=== PATIENT | male | born 1975 | race Caucasian/White ===

== ENCOUNTER 2016-06-24 08:57 | Inpatient (IN) | payer OTHER ==
[2016-06-24 10:20] VITALS: BMI 33.5
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
[2016-06-24] MEDS ORDERED: MAGNESIUM CITRATE 300 ML BOTTLE PO PRN (12:51)
[2016-06-24] MEDS ORDERED: P-EPHED 60MG/TRIPROLIDI 2.5MG TABLET PO PRN (12:51)
[2016-06-24] MEDS ORDERED: MENTHOL/PHENOL 1 EACH UD MM PRN (12:51)
[2016-06-24] MEDS ORDERED: IBUPROFEN 400 MG TABLET (FP) PO PRN (12:51)
[2016-06-24] MEDS ORDERED: ACETAMINOPHEN 325 MG TABLET (FP) PO PRN (12:51)
[2016-06-24] MEDS ORDERED: MAG HYDROX/AL HYDROX/SIMETH 30 ML UNIT-DOSE CUP PO PRN (12:51)
[2016-06-24] MEDS ORDERED: chlordiazePOXIDE HCL 25 MG CAPSULE PO PRN (12:51)
[2016-06-24] MEDS ORDERED: MAGNESIUM HYDROX 2400MG/30ML ORAL SUSPENSION 30 ML CUP PO PRN (12:51)
[2016-06-24] MEDS ORDERED: LOPERAMIDE HCL 2 MG CAPSULE PO PRN (12:51)
[2016-06-24] MEDS ORDERED: guaiFENesin/D-METHORPHAN HB 10 ML UNIT-DOSE CUPS PO PRN (12:51)
[2016-06-24] MEDS ORDERED: chlordiazePOXIDE HCL 25 MG CAPSULE PO ONE (12:56)
[2016-06-24] MEDS: NICOTINE 14 MG/24 HOURS TOPICAL PATCH TD SCH (14:11)
[2016-06-24 15:09] LABS: HIV 1 & 2 AB NEGATIVE; HIV 1 AGp24 NEGATIVE
[2016-06-24] MEDS: chlordiazePOXIDE HCL 25 MG CAPSULE PO SCH ×2 (17:16→22:29)
[2016-06-24] MEDS: THIAMINE HCL 100 MG TABLET (FP) PO SCH (22:29)
[2016-06-24 22:35] LABS: URINE APPEARANCE CLEAR; URINE BILIRUBIN NEGATIVE (NEGATIVE); URINE BLOOD NEGATIVE (NEGATIVE); URINE COLOR COLORLESS; URINE GLUCOSE (UA) NEGATIVE (NEGATIVE); URINE KETONE NEGATIVE (NEGATIVE); URINE LEUK ESTERASE NEGATIVE (NEGATIVE); URINE NITRITE NEGATIVE (NEGATIVE); URINE PROTEIN NEGATIVE (NEGATIVE); URINE UROBILINOGEN NEGATIVE E.U./dl (0.2-1.0)
[2016-06-25] MEDS: chlordiazePOXIDE HCL 25 MG CAPSULE PO SCH ×4 (05:46→22:53)
--- NOTE | 2016-06-25 10:12 | EKG ---
Test Reason : Blood Pressure : / mmHG Vent. Rate : 080 BPM Atrial Rate : 080 BPM P-R Int : 162 ms QRS Dur : 098 ms QT Int : 356 ms P-R-T Axes : 060 -05 044 degrees QTc Int : 410 ms NORMAL SINUS RHYTHM NO PREVIOUS ECGS AVAILABLE Confirmed by ANA MARÍA ALVARADO MD ([id number]) on 06/25/2016 10:11:26 AM Referred By: Confirmed By:ANA MARÍA ALVARADO MD
[2016-06-25 10:17] LABS: MCH 32.4 pg (25.7-33.7); MCHC 33.7 g/dl (32.0-35.9); MEAN CELL VOLUME 96.1 fl (80-96); MEAN PLT VOLUME 10.4 fl (7.5-11.1); PLATELET COUNT 207 K/MM3 (134-434); RDW 13.3 % (11.9-15.9); WHITE BLOOD COUNT 5.1 K/mm3 (4.0-10.0)
[2016-06-25] MEDS: PRENATAL VITAMINS W/ FOLIC ACID TABLET (FP) PO SCH (10:26)
[2016-06-25] MEDS: NICOTINE 14 MG/24 HOURS TOPICAL PATCH TD SCH (10:26)
[2016-06-25] MEDS: NICOTINE POLACRILEX 2 MG GUM BUC PRN (10:26)
[2016-06-25 11:08] LABS: ALBUMIN 4.5 g/dl (3.4-5.0); ALK PHOS 69 U/L (45-117); ANION GAP 9 (8-16); BILIRUBIN,TOTAL 0.5 mg/dL (0.2-1.0); CALCIUM 9.4 mg/dL (8.5-10.1); CO2 27 mmol/L (21-32); COCKROFT - GAULT 160.48; CREATININE 0.9 mg/dL (0.7-1.3); GLUCOSE,RANDOM 85 mg/dL (74-106); SGOT/AST 72 U/L (15-37); SGPT/ALT 170 U/L (12-78); TOT PROT 8.3 g/dl (6.4-8.2)
--- NOTE | 2016-06-25 11:20 | CONSULT ---
[facility] Psychiatric Consult - Data Date of interview: 06/25/16 Admission source: [facility] Identifying data: THis is 41 yo single father of 9 years old son, resides with mother,supported by PA admitted for alcohol dependendendence. Substance Abuse History: Reports drinking since 17 years old,progressed to daily drinking in his late .Vodka 1 pint, a few beers daily. marijuana since 17 years old. Medical History: unremarkable Psychiatric History: Reports depressed mood started back about 7 months ago.patient started to see a therapist.He was admitted to [facility] 3 months ago due to severe depression.He was dx with MDD,then Bipolar disorder.He was on Abilify 15 mg po daily,Trazodone 50 mg po hs.No regular psychiatric care at present.Patient stopped taking his psychotropic meds when he relapsed and is not willing to restart it at this time ,stating that he is sedated enouph with Librium. Physical/Sexual Abuse/Trauma History: denies Mental Status Exam - Mental Status Exam Alert and Oriented to: Time, Place, Person Cognitive Function: Grossly Intact Patient Appearance: Well Groomed Mood: Sad Affect: Mood Congruent Patient Behavior: Appropriate, Cooperative Speech Pattern: Clear Voice Loudness: Normal Thought Process: Goal Oriented Hallucinations: Denies Suicidal Ideation: Denies Homicidal Ideation: Denies Insight/Judgement: Fair Sleep: Fair Appetite: Good Muscle strength/Tone: Normal Gait/Station: Normal Psychiatric Findings - Problem List ([place] 1, 2,3) (1) Alcohol dependence with uncomplicated withdrawal Current Visit: Yes Status: Chronic (2) Cannabis dependence, uncomplicated Current Visit: Yes Status: Chronic (3) MDD (major depressive disorder) Current Visit: Yes Status: Chronic - Initial Treatment Plan Initial Treatment Plan: Will monitor progress.Consider antidepressants while in rehab treatment after finishing detox treatment.
--- NOTE | 2016-06-25 14:02 | PN ---
S CIWA - CIWA Score Nausea/Vomitin Muscle Tremors: 3 Anxiety: 3 Agitation: 2 Paroxysmal Sweats: 2 Orientation: 0-Oriented Tacttile Disturbances: 1-Very Mild Itch/Numbness Auditory Disturbances: 0-None Visual Disturbances: 0-None Headache: 2-Mild CIWA-Ar Total Score: 15 S Progress Note (SOAP) Subjective: Anxiety, irritability, muscle aches and tremors Objective: 06/25/16 14:00 Vital Signs - 8 hr 06/25/16 06/25/16 06:47 09:48 Temperature 96 F L 95.5 F L Pulse Rate 60 83 Respiratory 18 18 Rate Blood Pressure 123/88 115/79 Laboratory Last Values WBC 5.1 K/mm3 (4.0-10.0) 06/25/16 06:16 RBC 5.42 M/mm3 (4.00-5.60) 06/25/16 06:16 Hgb 17.6 GM/dL (11.7-16.9) H 06/25/16 06:16 Hct 52.1 % (35.4-49) H 06/25/16 06:16 MCV 96.1 fl (80-96) H 06/25/16 06:16 MCHC 33.7 g/dl (32.0-35.9) 06/25/16 06:16 RDW 13.3 % (11.9-15.9) 06/25/16 06:16 Plt Count 207 K/MM3 (134-434) 06/25/16 06:16 MPV 10.4 fl (7.5-11.1) 06/25/16 06:16 Sodium 141 mmol/L (136-145) 06/25/16 06:16 Potassium 4.5 mmol/L (3.5-5.1) 06/25/16 06:16 Chloride 105 mmol/L (98-107) 06/25/16 06:16 Carbon Dioxide 27 mmol/L (21-32) 06/25/16 06:16 Anion Gap 9 (8-16) 06/25/16 06:16 BUN 9 mg/dL (7-18) 06/25/16 06:16 Creatinine 0.9 mg/dL (0.7-1.3) 06/25/16 06:16 Creat Clearance w eGFR > 60 (>60) 06/25/16 06:16 Random Glucose 85 mg/dL (74-106) 06/25/16 06:16 Calcium 9.4 mg/dL (8.5-10.1) 06/25/16 06:16 Total Bilirubin 0.5 mg/dL (0.2-1.0) 06/25/16 06:16 AST 72 U/L (15-37) H 06/25/16 06:16 ALT 170 U/L (12-78) H 06/25/16 06:16 Alkaline Phosphatase 69 U/L (45-117) 06/25/16 06:16 Total Protein 8.3 g/dl (6.4-8.2) H 06/25/16 06:16 Albumin 4.5 g/dl (3.4-5.0) 06/25/16 06:16 Urine Color Colorless 06/24/16 13:00 Urine Appearance Clear 06/24/16 13:00 Urine pH 6.0 (5.0-8.0) 06/24/16 13:00 Ur Specific [place] 1.003 (1.001-1.035) 06/24/16 13:00 Urine Protein Negative (NEGATIVE) 06/24/16 13:00 Urine Glucose (UA) Negative (NEGATIVE) 06/24/16 13:00 Urine Ketones Negative (NEGATIVE) 06/24/16 13:00 Urine Blood Negative (NEGATIVE) 06/24/16 13:00 Urine Nitrite Negative (NEGATIVE) 06/24/16 13:00 Urine Bilirubin Negative (NEGATIVE) 06/24/16 13:00 Urine Urobilinogen Negative E.U./dl (0.2-1.0) 06/24/16 13:00 Ur Leukocyte Esterase Negative (NEGATIVE) 06/24/16 13:00 RPR Titer Nonreactive (NONREACTIVE) 06/25/16 06:16 HIV 1&2 Antibody Screen Negative 06/24/16 12:10 HIV P24 Antigen Negative 06/24/16 12:10 labs noted Assessment: 06/25/16 14:01 withdrawal sx Plan: continue detox
[2016-06-25] MEDS: hydrOXYzine PAMOATE 25 MG CAPSULE (FP) PO PRN (15:45)
[2016-06-25 19:16] LABS: URINE APPEARANCE CLEAR; URINE BILIRUBIN NEGATIVE (NEGATIVE); URINE BLOOD NEGATIVE (NEGATIVE); URINE COLOR YELLOW; URINE GLUCOSE (UA) NEGATIVE (NEGATIVE); URINE KETONE NEGATIVE (NEGATIVE); URINE LEUK ESTERASE NEGATIVE (NEGATIVE); URINE NITRITE NEGATIVE (NEGATIVE); URINE PROTEIN NEGATIVE (NEGATIVE); URINE UROBILINOGEN NEGATIVE E.U./dl (0.2-1.0)
[2016-06-25] MEDS: THIAMINE HCL 100 MG TABLET (FP) PO SCH (22:53)
[2016-06-25] MEDS: diphenhydrAMINE HCL 50 MG CAPSULE PO PRN (22:54)
[2016-06-26] MEDS: chlordiazePOXIDE HCL 25 MG CAPSULE PO SCH ×2 (05:48→10:54)
[2016-06-26] MEDS: PRENATAL VITAMINS W/ FOLIC ACID TABLET (FP) PO SCH (10:53)
[2016-06-26] MEDS: NICOTINE 14 MG/24 HOURS TOPICAL PATCH TD SCH (10:54)
[2016-06-26] MEDS: NICOTINE POLACRILEX 2 MG GUM BUC PRN (10:55)
[2016-06-26] MEDS: hydrOXYzine PAMOATE 25 MG CAPSULE (FP) PO PRN (15:39)
--- NOTE | 2016-06-26 16:15 | PN ---
S CIWA - CIWA Score Nausea/Vomitin-Mild Nausea/No Vomiting Muscle Tremors: 3 Anxiety: 3 Agitation: 3 Paroxysmal Sweats: No Perspiration Orientation: 0-Oriented Tacttile Disturbances: 0-None Auditory Disturbances: 0-None Visual Disturbances: 0-None Headache: 2-Mild CIWA-Ar Total Score: 12 S Progress Note (SOAP) Subjective: Anxious, sweating, interrupted sleep Objective: 06/26/16 16:13 Last Vital Signs Temp Pulse Resp BP Pulse Ox 95.0 F L 87 18 112/85 06/26/16 13:35 06/26/16 13:35 06/26/16 13:35 06/26/16 13:35 Laboratory Tests 06/24/16 06/24/16 06/25/16 12:10 13:00 06:16 WBC 5.1 RBC 5.42 Hgb 17.6 H Hct 52.1 H MCV 96.1 H MCHC 33.7 RDW 13.3 Plt Count 207 MPV 10.4 Sodium Potassium Chloride Carbon Dioxide Anion Gap BUN Creatinine Creat Clearance w eGFR Random Glucose Calcium Total Bilirubin AST ALT Alkaline Phosphatase Total Protein Albumin Urine Color Colorless Urine Appearance Clear Urine pH 6.0 Ur Specific [place] 1.003 Urine Protein Negative Urine Glucose (UA) Negative Urine Ketones Negative Urine Blood Negative Urine Nitrite Negative Urine Bilirubin Negative Urine Urobilinogen Negative Ur Leukocyte Esterase Negative RPR Titer HIV 1&2 Antibody Screen Negative HIV P24 Antigen Negative 06/25/16 06/25/16 06/25/16 06:16 06:16 11:05 WBC RBC Hgb Hct MCV MCHC RDW Plt Count MPV Sodium 141 Potassium 4.5 Chloride 105 Carbon Dioxide 27 Anion Gap 9 BUN 9 Creatinine 0.9 Creat Clearance w eGFR > 60 Random Glucose 85 Calcium 9.4 Total Bilirubin 0.5 AST 72 H ALT 170 H Alkaline Phosphatase 69 Total Protein 8.3 H Albumin 4.5 Urine Color Yellow Urine Appearance Clear Urine pH 5.0 Ur Specific [place] 1.020 Urine Protein Negative Urine Glucose (UA) Negative Urine Ketones Negative Urine Blood Negative Urine Nitrite Negative Urine Bilirubin Negative Urine Urobilinogen Negative Ur Leukocyte Esterase Negative RPR Titer Nonreactive HIV 1&2 Antibody Screen HIV P24 Antigen Labs noted Assessment: 06/26/16 16:14 Withdrawal symptoms Plan: Continue detox
[2016-06-26] MEDS: chlordiazePOXIDE 5 MG CAPSULE PO SCH ×2 (17:52→22:41)
[2016-06-26] MEDS: THIAMINE HCL 100 MG TABLET (FP) PO SCH (22:41)
[2016-06-26] MEDS: diphenhydrAMINE HCL 50 MG CAPSULE PO PRN (22:41)
[2016-06-27] MEDS: chlordiazePOXIDE 5 MG CAPSULE PO SCH ×2 (05:11→10:35)
[2016-06-27] MEDS: NICOTINE 14 MG/24 HOURS TOPICAL PATCH TD SCH (10:35)
[2016-06-27] MEDS: PRENATAL VITAMINS W/ FOLIC ACID TABLET (FP) PO SCH (10:35)
--- NOTE | 2016-06-27 15:42 | PN ---
BHS Progress Note (SOAP) Subjective: Sweating,interrupted sleep,restless Objective: 06/27/16 15:40 Vital Signs - 8 hr 06/27/16 06/27/16 09:51 14:10 Temperature 95.7 F L 96.1 F L Pulse Rate 79 88 Respiratory 20 20 Rate Blood Pressure 139/93 124/84 Laboratory Tests 06/24/16 06/24/16 06/25/16 12:10 13:00 06:16 WBC 5.1 RBC 5.42 Hgb 17.6 H Hct 52.1 H MCV 96.1 H MCHC 33.7 RDW 13.3 Plt Count 207 MPV 10.4 Sodium Potassium Chloride Carbon Dioxide Anion Gap BUN Creatinine Creat Clearance w eGFR Random Glucose Calcium Total Bilirubin AST ALT Alkaline Phosphatase Total Protein Albumin Urine Color Colorless Urine Appearance Clear Urine pH 6.0 Ur Specific [place] 1.003 Urine Protein Negative Urine Glucose (UA) Negative Urine Ketones Negative Urine Blood Negative Urine Nitrite Negative Urine Bilirubin Negative Urine Urobilinogen Negative Ur Leukocyte Esterase Negative RPR Titer HIV 1&2 Antibody Screen Negative HIV P24 Antigen Negative 06/25/16 06/25/16 06/25/16 06:16 06:16 11:05 WBC RBC Hgb Hct MCV MCHC RDW Plt Count MPV Sodium 141 Potassium 4.5 Chloride 105 Carbon Dioxide 27 Anion Gap 9 BUN 9 Creatinine 0.9 Creat Clearance w eGFR > 60 Random Glucose 85 Calcium 9.4 Total Bilirubin 0.5 AST 72 H ALT 170 H Alkaline Phosphatase 69 Total Protein 8.3 H Albumin 4.5 Urine Color Yellow Urine Appearance Clear Urine pH 5.0 Ur Specific [place] 1.020 Urine Protein Negative Urine Glucose (UA) Negative Urine Ketones Negative Urine Blood Negative Urine Nitrite Negative Urine Bilirubin Negative Urine Urobilinogen Negative Ur Leukocyte Esterase Negative RPR Titer Nonreactive HIV 1&2 Antibody Screen HIV P24 Antigen labs noted Assessment: 06/27/16 15:41 Withdrawal sx. Plan: Continue detox
[2016-06-27] MEDS: chlordiazePOXIDE HCL 10 MG CAPSULE PO SCH ×2 (17:25→22:26)
[2016-06-27] MEDS: THIAMINE HCL 100 MG TABLET (FP) PO SCH (22:26)
[2016-06-27] MEDS: diphenhydrAMINE HCL 50 MG CAPSULE PO PRN (22:27)
[2016-06-27] MEDS: NICOTINE POLACRILEX 2 MG GUM BUC PRN (22:28)
[2016-06-28] MEDS: chlordiazePOXIDE HCL 10 MG CAPSULE PO SCH (05:25)
[2016-06-28 09:34] VITALS: BP 135/93; PULSE 89; TEMP 96.1
--- NOTE | 2016-06-28 10:34 | DS ---
[facility] Detox Discharge Summary Admission Date: 06/24/16 Discharge Date: 06/28/16 - History Present History: Alcohol Dependence, Cannabis Dependence Additional Comments: DETOX COMPLETED. ALERT O X 3. NAD. Pertinent Past History: HYPERCHOLESTEROLEMIA HX-NO MEDS DEPRESSION - Physical Exam Results Vital Signs: Vital Signs Temperature 96.1 F L 06/28/16 09:34 Pulse Rate 89 06/28/16 09:34 Respiratory Rate 18 06/28/16 09:34 Blood Pressure 135/93 06/28/16 09:34 O2 Sat by Pulse Oximetry (%) Pertinent Admission Physical Exam Findings: WITHDRAWAL SX Laboratory Last Values WBC 5.1 K/mm3 (4.0-10.0) 06/25/16 06:16 RBC 5.42 M/mm3 (4.00-5.60) 06/25/16 06:16 Hgb 17.6 GM/dL (11.7-16.9) H 06/25/16 06:16 Hct 52.1 % (35.4-49) H 06/25/16 06:16 MCV 96.1 fl (80-96) H 06/25/16 06:16 MCHC 33.7 g/dl (32.0-35.9) 06/25/16 06:16 RDW 13.3 % (11.9-15.9) 06/25/16 06:16 Plt Count 207 K/MM3 (134-434) 06/25/16 06:16 MPV 10.4 fl (7.5-11.1) 06/25/16 06:16 Sodium 141 mmol/L (136-145) 06/25/16 06:16 Potassium 4.5 mmol/L (3.5-5.1) 06/25/16 06:16 Chloride 105 mmol/L (98-107) 06/25/16 06:16 Carbon Dioxide 27 mmol/L (21-32) 06/25/16 06:16 Anion Gap 9 (8-16) 06/25/16 06:16 BUN 9 mg/dL (7-18) 06/25/16 06:16 Creatinine 0.9 mg/dL (0.7-1.3) 06/25/16 06:16 Creat Clearance w eGFR > 60 (>60) 06/25/16 06:16 Random Glucose 85 mg/dL (74-106) 06/25/16 06:16 Calcium 9.4 mg/dL (8.5-10.1) 06/25/16 06:16 Total Bilirubin 0.5 mg/dL (0.2-1.0) 06/25/16 06:16 AST 72 U/L (15-37) H 06/25/16 06:16 ALT 170 U/L (12-78) H 06/25/16 06:16 Alkaline Phosphatase 69 U/L (45-117) 06/25/16 06:16 Total Protein 8.3 g/dl (6.4-8.2) H 06/25/16 06:16 Albumin 4.5 g/dl (3.4-5.0) 06/25/16 06:16 Urine Color Yellow 06/25/16 11:05 Urine Appearance Clear 06/25/16 11:05 Urine pH 5.0 (5.0-8.0) 06/25/16 11:05 Ur Specific [place] 1.020 (1.001-1.035) 06/25/16 11:05 Urine Protein Negative (NEGATIVE) 06/25/16 11:05 Urine Glucose (UA) Negative (NEGATIVE) 06/25/16 11:05 Urine Ketones Negative (NEGATIVE) 06/25/16 11:05 Urine Blood Negative (NEGATIVE) 06/25/16 11:05 Urine Nitrite Negative (NEGATIVE) 06/25/16 11:05 Urine Bilirubin Negative (NEGATIVE) 06/25/16 11:05 Urine Urobilinogen Negative E.U./dl (0.2-1.0) 06/25/16 11:05 Ur Leukocyte Esterase Negative (NEGATIVE) 06/25/16 11:05 RPR Titer Nonreactive (NONREACTIVE) 06/25/16 06:16 HIV 1&2 Antibody Screen Negative 06/24/16 12:10 HIV P24 Antigen Negative 06/24/16 12:10 - Treatment Hospital Course: Detox Protocol Followed, Detoxed Safely, Responded well, Discharged Condition Good, Rehab Referral Accepted Patient has Accepted a Rehab Referral to: [facility] - Medication Discharge Medications: Ambulatory Orders Aripiprazole [Abilify -] 15 mg PO DAILY 06/24/16 Trazodone HCl [Desyrel -] 50 mg PO HS 06/24/16 - Diagnosis (1) Alcohol dependence with uncomplicated withdrawal Current Visit: Yes Status: Acute (2) Cannabis dependence, uncomplicated Current Visit: Yes Status: Acute (3) History of depression Current Visit: Yes Status: Chronic (4) MDD (major depressive disorder) Current Visit: Yes Status: Chronic - AMA Did Patient Leave Against Medical Advice: No
== END 2016-06-28 10:20 | disposition home or self-care (01) | DRG 775 ==
LOC: YASAS 08:57 → Y3N 12:43
PROVIDERS: ADMIT Internal Medicine; ATTEND Internal Medicine
PROC: HZ2ZZZZ Detoxification Services for Substance Abuse Treatment (ICD-10-PCS; principal; 2016-06-28)
DX: F10.230 Alcohol dependence with withdrawal, uncomplicated (principal); F12.20 Cannabis dependence, uncomplicated; F33.9 Major depressive disorder, recurrent, unspecified
CPT/HCPCS: 36415; 80053; 81003; 85027; 86593; 87389; 93005; 93010

== ENCOUNTER 2018-12-07 12:56 | Inpatient (IN) | payer OTHER ==
[2018-12-07 14:21] VITALS: BMI 26.6
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
[2018-12-07] MEDS ORDERED: BISMUTH SUBSALICYLATE 524 MG/30 ML UD PO PRN (15:16)
[2018-12-07] MEDS ORDERED: MELATONIN 5 MG TABLETS PO PRN (15:16)
[2018-12-07] MEDS ORDERED: MAG HYDROX/AL HYDROX/SIMETH 30 ML UNIT-DOSE CUP PO PRN (15:16)
[2018-12-07] MEDS ORDERED: ACETAMINOPHEN 325 MG TABLET (FP) PO PRN ×2 (15:16)
[2018-12-07] MEDS ORDERED: IBUPROFEN 400 MG TABLET (FP) PO PRN (15:16)
[2018-12-07] MEDS ORDERED: MAGNESIUM HYDROX 2400MG/30ML ORAL SUSPENSION 30 ML CUP PO PRN (15:16)
[2018-12-07] MEDS ORDERED: MENTHOL/PHENOL 1 EACH UD MM PRN (15:16)
[2018-12-07] MEDS ORDERED: chlordiazePOXIDE HCL 25 MG CAPSULE PO PRN (15:16)
[2018-12-07] MEDS ORDERED: MAGNESIUM CITRATE 300 ML BOTTLE PO PRN (15:16)
[2018-12-07] MEDS: chlordiazePOXIDE HCL 25 MG CAPSULE PO SCH ×2 (16:43→22:01)
[2018-12-07] MEDS: hydrOXYzine PAMOATE 25 MG CAPSULE (FP) PO PRN (19:59)
[2018-12-07] MEDS: METHOCARBAMOL 500 MG TABLET PO PRN (19:59)
[2018-12-07] MEDS ORDERED: THIAMINE HCL 100 MG TABLET (FP) PO SCH (22:00)
[2018-12-08] MEDS: chlordiazePOXIDE HCL 25 MG CAPSULE PO SCH ×2 (06:18→10:18)
[2018-12-08] MEDS ORDERED: PRENATAL VITAMINS W/ FOLIC ACID TABLET (FP) PO SCH (10:00)
[2018-12-08] MEDS: hydrOXYzine PAMOATE 25 MG CAPSULE (FP) PO PRN (10:20)
[2018-12-08 11:22] LABS: HEMATOCRIT 44.9 % (35.4-49); HEMOGLOBIN 15.3 GM/dL (11.7-16.9); MCH 34.3 pg (25.7-33.7); MCHC 34.1 g/dl (32.0-35.9); MEAN CELL VOLUME 100.5 fl (80-96); MEAN PLT VOLUME 9.7 fl (7.5-11.1); PLATELET COUNT 230 K/MM3 (134-434); RBC 4.47 M/mm3 (4.00-5.60); RDW 13.2 % (11.9-15.9); WHITE BLOOD COUNT 5.8 K/mm3 (4.0-10.0)
[2018-12-08 11:26] LABS: ALBUMIN 4.1 g/dl (3.4-5.0); BILIRUBIN,TOTAL 0.8 mg/dL (0.2-1); BLOOD UREA NITROGEN 9.8 mg/dL (7-18); CALCIUM 9.4 mg/dL (8.5-10.1); CREATININE 0.9 mg/dL (0.55-1.3); POTASSIUM 4.5 mmol/L (3.5-5.1); TOT PROT 7.6 g/dl (6.4-8.2)
[2018-12-08 12:18] VITALS: BP 119/86; PULSE 71; TEMP 99.2
[2018-12-08] MEDS: METHOCARBAMOL 500 MG TABLET PO PRN (13:15)
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
[2018-12-09] MEDS ORDERED: chlordiazePOXIDE HCL 25 MG CAPSULE PO SCH (05:00)
[2018-12-10] MEDS ORDERED: chlordiazePOXIDE HCL 10 MG CAPSULE PO PRN
[2018-12-10] MEDS ORDERED: chlordiazePOXIDE HCL 10 MG CAPSULE PO SCH (05:00)
[2018-12-11] MEDS ORDERED: chlordiazePOXIDE HCL 10 MG CAPSULE PO SCH (05:00)
[2018-12-12] MEDS ORDERED: chlordiazePOXIDE HCL 10 MG CAPSULE PO ONE (05:00)
== END 2018-12-08 14:20 | disposition left against medical advice (07) | DRG 770 ==
LOC: YASAS 12:56 → Y3N 15:38
PROVIDERS: ADMIT Allergy & Immunology; ATTEND Allergy & Immunology
PROC: HZ2ZZZZ Detoxification Services for Substance Abuse Treatment (ICD-10-PCS; principal; 2018-12-07)
DX: F10.230 Alcohol dependence with withdrawal, uncomplicated (principal); F10.220 Alcohol dependence with intoxication, uncomplicated; F19.20 Other psychoactive substance dependence, uncomplicated; F17.210 Nicotine dependence, cigarettes, uncomplicated; F32.9 Major depressive disorder, single episode, unspecified; E78.00 Pure hypercholesterolemia, unspecified; Z87.828 Personal history of other (healed) physical injury and trauma; Z91.5 Personal history of self-harm
CPT/HCPCS: 36415; 80053; 85027; 86593; 87389

== ENCOUNTER 2020-11-09 16:12 | Inpatient (IN) | payer OTHER ==
[2020-11-09 17:06] VITALS: BMI 26.6
[2020-11-09] MEDS ORDERED: MAG HYDROX/AL HYDROX/SIMETH 30 ML UNIT-DOSE CUP PO PRN (17:57)
[2020-11-09] MEDS ORDERED: IBUPROFEN 400 MG TABLET (FP) PO PRN (17:57)
[2020-11-09] MEDS ORDERED: MAGNESIUM CITRATE 300 ML BOTTLE PO PRN (17:57)
[2020-11-09] MEDS ORDERED: hydrOXYzine PAMOATE 25 MG CAPSULE (FP) PO PRN (17:57)
[2020-11-09] MEDS ORDERED: MAGNESIUM HYDROX 2400MG/30ML ORAL SUSPENSION 30 ML CUP PO PRN (17:57)
[2020-11-09] MEDS ORDERED: NICOTINE POLACRILEX 2 MG GUM BUC PRN (17:57)
[2020-11-09] MEDS ORDERED: METHOCARBAMOL 500 MG TABLET PO PRN (17:57)
[2020-11-09] MEDS ORDERED: BISMUTH SUBSALICYLATE 524 MG/30 ML PO PRN (17:57)
[2020-11-09] MEDS ORDERED: MENTHOL/PHENOL 1 EACH UD MM PRN (17:57)
[2020-11-09] MEDS ORDERED: ONDANSETRON *ODT* 4 MG TABLET SL PRN (17:57)
[2020-11-09] MEDS ORDERED: ACETAMINOPHEN 325 MG TABLET (FP) PO PRN ×2 (17:57)
[2020-11-09] MEDS ORDERED: ONDANSETRON *ODT* 4 MG TABLET ONE (18:30)
[2020-11-09] MEDS ORDERED: TRIMETHOBENZAMIDE HCL 200MG/2ML INJ IM ONE ×2 (19:41→19:45)
[2020-11-09] MEDS ORDERED: LORazepam 1 MG TABLET ONE (20:21)
[2020-11-09] MEDS: LORazepam 1 MG TABLET PO PRN (20:25)
[2020-11-09] MEDS: LORazepam 2 MG TABLET PO SCH (22:00)
[2020-11-09] MEDS: THIAMINE HCL 100 MG TABLET (FP) PO SCH (22:00)
[2020-11-09] MEDS: MELATONIN 5 MG TABLETS PO SCH (22:01)
[2020-11-10] MEDS: LORazepam 2 MG TABLET PO SCH ×4 (06:21→22:06)
[2020-11-10 10:34] LABS: CALCIUM 9.1 mg/dL (8.5-10.1)
[2020-11-10 10:35] LABS: ALBUMIN 3.7 g/dl (3.4-5.0); BLOOD UREA NITROGEN 8.2 mg/dL (7-18)
[2020-11-10 10:36] LABS: HEMATOCRIT 44.8 % (35.4-49); HEMOGLOBIN 15.4 GM/dL (11.7-16.9); MCH 35.1 pg (25.7-33.7); MCHC 34.4 g/dl (32.0-35.9); MEAN CELL VOLUME 101.9 fl (80-96); MEAN PLT VOLUME 9.8 fl (7.5-11.1); PLATELET COUNT 230 10^3/uL (134-434); RBC 4.39 M/mm3 (4.00-5.60); RDW 13.4 % (11.9-15.9)
[2020-11-10 10:38] LABS: CREATININE 0.8 mg/dL (0.55-1.3)
[2020-11-10 10:39] LABS: BILIRUBIN,TOTAL 1.1 mg/dL (0.2-1); TOT PROT 7.6 g/dl (6.4-8.2)
[2020-11-10] MEDS: PRENATAL VITAMINS W/ FOLIC ACID TABLET (FP) PO SCH (10:48)
[2020-11-10 11:28] LABS: HIV INTERPRETATION NEGATIVE (NEGATIVE)
[2020-11-10] MEDS: THIAMINE HCL 100 MG TABLET (FP) PO SCH (22:06)
[2020-11-10] MEDS: MELATONIN 5 MG TABLETS PO SCH (22:35)
[2020-11-11] MEDS: LORazepam 1 MG TABLET PO PRN (06:04)
[2020-11-11] MEDS: LORazepam 1 MG TABLET PO SCH ×2 (06:07→10:10)
[2020-11-11] MEDS: PRENATAL VITAMINS W/ FOLIC ACID TABLET (FP) PO SCH (10:10)
[2020-11-11 12:55] VITALS: BP 142/72; PULSE 87; TEMP 98
[2020-11-12] MEDS ORDERED: LORazepam 0.5 MG TABLET PO PRN
[2020-11-12] MEDS ORDERED: LORazepam 0.5 MG TABLET PO SCH (05:00)
[2020-11-13] MEDS ORDERED: LORazepam 0.5 MG TABLET PO ONE (05:00)
== END 2020-11-11 16:22 | disposition left against medical advice (07) | DRG 770 ==
LOC: YASAS 16:12 → Y6N 18:36
PROVIDERS: ADMIT Allergy & Immunology; ATTEND Allergy & Immunology
PROC: HZ2ZZZZ Detoxification Services for Substance Abuse Treatment (ICD-10-PCS; principal; 2020-11-09)
DX: F10.230 Alcohol dependence with withdrawal, uncomplicated (principal); F12.20 Cannabis dependence, uncomplicated; F17.210 Nicotine dependence, cigarettes, uncomplicated; F32.9 Major depressive disorder, single episode, unspecified; G40.509 Epileptic seizures related to external causes, not intractable, without status epilepticus; Z86.59 Personal history of other mental and behavioral disorders; Z56.0 Unemployment, unspecified; Z59.0 Homelessness
CPT/HCPCS: 36415; 80053; 85027; 86780; 87389; 93005; 93010; C9803; Q0162; U0003; U0005

== ENCOUNTER 2021-06-21 15:30 | Inpatient (IN) | payer OTHER ==
[2021-06-21 17:45] VITALS: BMI 29.5
[2021-06-21] MEDS ORDERED: ACETAMINOPHEN 325 MG TABLET (FP) PO PRN ×2 (20:00)
[2021-06-21] MEDS ORDERED: IBUPROFEN 400 MG TABLET (FP) PO PRN (20:00)
[2021-06-21] MEDS ORDERED: LOPERAMIDE HCL 2 MG CAPSULE PO PRN (20:00)
[2021-06-21] MEDS ORDERED: BENZOCAINE/MENTHOL (CHLORASEPTIC ) LOZENGE MM PRN (20:00)
[2021-06-21] MEDS ORDERED: MAG HYDROX/AL HYDROX/SIMETH 30 ML UNIT-DOSE CUP PO PRN (20:00)
[2021-06-21] MEDS ORDERED: MAGNESIUM CITRATE 300 ML BOTTLE PO PRN (20:00)
[2021-06-21] MEDS ORDERED: DICYCLOMINE HCL 10 MG CAPSULE PO PRN (20:00)
[2021-06-21] MEDS ORDERED: ONDANSETRON *ODT* 4 MG TABLET SL PRN (20:00)
[2021-06-21] MEDS ORDERED: NICOTINE POLACRILEX 2 MG GUM BUC PRN (20:00)
[2021-06-21] MEDS ORDERED: BISMUTH SUBSALICYLATE 524 MG/30 ML PO PRN (20:00)
[2021-06-21] MEDS ORDERED: MAGNESIUM HYDROX 2400MG/30ML ORAL SUSPENSION 30 ML CUP PO PRN (20:00)
[2021-06-21] MEDS ORDERED: chlordiazePOXIDE HCL 25 MG CAPSULE PO PRN (20:02)
[2021-06-21] MEDS ORDERED: chlordiazePOXIDE HCL 25 MG CAPSULE PO ONE (20:02)
[2021-06-22] MEDS: THIAMINE HCL 100 MG TABLET (FP) PO SCH ×2 (01:29→22:24)
[2021-06-22] MEDS: chlordiazePOXIDE HCL 25 MG CAPSULE PO SCH ×5 (01:36→22:24)
[2021-06-22] MEDS: METHOCARBAMOL 500 MG TABLET PO PRN ×2 (01:39→10:18)
[2021-06-22] MEDS: PRENATAL VITAMINS W/ FOLIC ACID TABLET (FP) PO SCH (10:18)
[2021-06-22 11:58] LABS: ALBUMIN 3.8 g/dl (3.4-5.0); BLOOD UREA NITROGEN 9.3 mg/dL (7-18); CALCIUM 9.3 mg/dL (8.5-10.1)
[2021-06-22 12:01] LABS: CREATININE 0.8 mg/dL (0.55-1.3)
[2021-06-22 12:03] LABS: BILIRUBIN,TOTAL 1.2 mg/dL (0.2-1); TOT PROT 7.5 g/dl (6.4-8.2)
[2021-06-22 12:06] LABS: HEMOGLOBIN 15.8 GM/dL (11.7-16.9); MCH 33.9 pg (25.7-33.7); MCHC 34.3 g/dl (32.0-35.9); MEAN CELL VOLUME 98.7 fl (80-96); PLATELET COUNT 236 10^3/uL (134-434); RBC 4.66 M/mm3 (4.00-5.60); RDW 13.3 % (11.9-15.9); WHITE BLOOD COUNT 5.1 K/mm3 (4.0-10.0)
[2021-06-22] MEDS: MELATONIN 5 MG TABLETS PO PRN (22:26)
[2021-06-23] MEDS: chlordiazePOXIDE HCL 25 MG CAPSULE PO SCH ×4 (05:32→22:21)
[2021-06-23] MEDS: PRENATAL VITAMINS W/ FOLIC ACID TABLET (FP) PO SCH (10:25)
[2021-06-23] MEDS: METHOCARBAMOL 500 MG TABLET PO PRN ×2 (10:25→17:33)
[2021-06-23] MEDS: hydrOXYzine PAMOATE 25 MG CAPSULE (FP) PO PRN ×2 (17:31→22:21)
[2021-06-23] MEDS: THIAMINE HCL 100 MG TABLET (FP) PO SCH (22:21)
[2021-06-23] MEDS: MELATONIN 5 MG TABLETS PO PRN (22:21)
[2021-06-24] MEDS ORDERED: chlordiazePOXIDE HCL 10 MG CAPSULE PO PRN
[2021-06-24] MEDS: chlordiazePOXIDE HCL 10 MG CAPSULE PO SCH ×4 (05:26→22:18)
[2021-06-24] MEDS: PRENATAL VITAMINS W/ FOLIC ACID TABLET (FP) PO SCH (10:11)
[2021-06-24] MEDS: METHOCARBAMOL 500 MG TABLET PO PRN ×2 (10:11→18:12)
[2021-06-24 15:09] LABS: SARS-CoV-2 NAA Not Detected (Not Detected)
[2021-06-24] MEDS: hydrOXYzine PAMOATE 25 MG CAPSULE (FP) PO PRN ×2 (18:12→22:19)
[2021-06-24] MEDS: THIAMINE HCL 100 MG TABLET (FP) PO SCH (22:18)
[2021-06-24] MEDS: MELATONIN 5 MG TABLETS PO PRN (22:19)
[2021-06-25] MEDS: chlordiazePOXIDE HCL 10 MG CAPSULE PO SCH ×2 (04:04→18:40)
[2021-06-25] MEDS: hydrOXYzine PAMOATE 25 MG CAPSULE (FP) PO PRN ×5 (04:04→22:42)
[2021-06-25] MEDS: METHOCARBAMOL 500 MG TABLET PO PRN ×2 (10:31→18:41)
[2021-06-25] MEDS: PRENATAL VITAMINS W/ FOLIC ACID TABLET (FP) PO SCH (10:31)
[2021-06-25] MEDS ORDERED: traZODone HCL 100 MG TABLET (FP) PO SCH (22:00)
[2021-06-25] MEDS: THIAMINE HCL 100 MG TABLET (FP) PO SCH (22:42)
[2021-06-25] MEDS: MELATONIN 5 MG TABLETS PO PRN (22:44)
[2021-06-26] MEDS ORDERED: chlordiazePOXIDE HCL 10 MG CAPSULE PO ONE (05:00)
[2021-06-26] MEDS: hydrOXYzine PAMOATE 25 MG CAPSULE (FP) PO PRN ×2 (05:37→11:07)
[2021-06-26 09:25] VITALS: BP 102/63; PULSE 80; TEMP 96.9
[2021-06-26] MEDS: PRENATAL VITAMINS W/ FOLIC ACID TABLET (FP) PO SCH (11:06)
== END 2021-06-26 13:01 | disposition other institution (70) | DRG 775 ==
LOC: YASAS 15:30 → Y6N 22:52
PROVIDERS: ADMIT Allergy & Immunology; ATTEND Allergy & Immunology
PROC: HZ2ZZZZ Detoxification Services for Substance Abuse Treatment (ICD-10-PCS; principal; 2021-06-21)
DX: F10.230 Alcohol dependence with withdrawal, uncomplicated (principal); F12.20 Cannabis dependence, uncomplicated; F17.210 Nicotine dependence, cigarettes, uncomplicated; F10.282 Alcohol dependence with alcohol-induced sleep disorder; F10.24 Alcohol dependence with alcohol-induced mood disorder; R26.89 Other abnormalities of gait and mobility; Z86.59 Personal history of other mental and behavioral disorders; Z56.0 Unemployment, unspecified; Z59.00 Homelessness unspecified
CPT/HCPCS: 36415; 80053; 85027; 86780; C9803-CS; U0003; U0005

== ENCOUNTER 2021-06-26 13:29 | Inpatient (IN) | payer OTHER ==
[2021-06-26] MEDS ORDERED: ACETAMINOPHEN 325 MG TABLET (FP) PO PRN (13:55)
[2021-06-26] MEDS ORDERED: guaiFENesin 200 MG/10 ML 10 ML UNIT-DOSE CUPS PO PRN (13:55)
[2021-06-26] MEDS ORDERED: LOPERAMIDE HCL 2 MG CAPSULE PO PRN (13:55)
[2021-06-26] MEDS ORDERED: MAGNESIUM HYDROX 2400MG/30ML ORAL SUSPENSION 30 ML CUP PO PRN (13:55)
[2021-06-26] MEDS ORDERED: P-EPHED 60MG/TRIPROLIDI 2.5MG TABLET PO PRN (13:55)
[2021-06-26] MEDS ORDERED: BENZOCAINE/MENTHOL (CHLORASEPTIC ) LOZENGE MM PRN (13:55)
[2021-06-26] MEDS ORDERED: MAG HYDROX/AL HYDROX/SIMETH 30 ML UNIT-DOSE CUP PO PRN (13:55)
[2021-06-26] MEDS ORDERED: MAGNESIUM CITRATE 300 ML BOTTLE PO PRN (13:55)
[2021-06-26 15:57] VITALS: BMI 32.3
[2021-06-26] MEDS: THIAMINE HCL 100 MG TABLET (FP) PO SCH (21:01)
[2021-06-26] MEDS: MELATONIN 5 MG TABLETS PO SCH (21:01)
[2021-06-27] MEDS: hydrOXYzine PAMOATE 25 MG CAPSULE (FP) PO PRN ×4 (03:02→21:34)
[2021-06-27] MEDS: PRENATAL VITAMINS W/ FOLIC ACID TABLET (FP) PO SCH (10:08)
[2021-06-27] MEDS: NICOTINE 10 MG CARTRIDGE (INHALER) IH PRN (10:10)
[2021-06-27] MEDS: NICOTINE 7 MG/24 HOURS TOPICAL PATCH TD SCH (10:10)
[2021-06-27] MEDS ORDERED: cloNIDine HCL 0.1 MG TABLET PO PRN (11:46)
[2021-06-27] MEDS ORDERED: FLU VACC QS2021-22(6MOS UP)/PF 60 MCG/0.5 ML SYRINGE IM ONE (12:00)
[2021-06-27] MEDS: cloNIDine HCL 0.1 MG TABLET PO PRN (14:28)
[2021-06-27] MEDS: traZODone HCL 100 MG TABLET (FP) PO SCH (21:34)
[2021-06-27] MEDS: MELATONIN 5 MG TABLETS PO SCH (21:34)
[2021-06-27] MEDS: THIAMINE HCL 100 MG TABLET (FP) PO SCH (21:35)
[2021-06-28] MEDS: PRENATAL VITAMINS W/ FOLIC ACID TABLET (FP) PO SCH (10:28)
[2021-06-28] MEDS: cloNIDine HCL 0.1 MG TABLET PO PRN (10:28)
[2021-06-28] MEDS: NICOTINE 10 MG CARTRIDGE (INHALER) IH PRN (10:28)
[2021-06-28] MEDS: hydrOXYzine PAMOATE 25 MG CAPSULE (FP) PO PRN ×2 (10:29→21:03)
[2021-06-28] MEDS: NICOTINE 7 MG/24 HOURS TOPICAL PATCH TD SCH (10:38)
[2021-06-28] MEDS: THIAMINE HCL 100 MG TABLET (FP) PO SCH (21:02)
[2021-06-28] MEDS: traZODone HCL 100 MG TABLET (FP) PO SCH (21:02)
[2021-06-28] MEDS: MELATONIN 5 MG TABLETS PO SCH (21:03)
[2021-06-29 00:06] LABS: SARS-CoV-2 NAA Not Detected (Not Detected)
[2021-06-29] MEDS: PRENATAL VITAMINS W/ FOLIC ACID TABLET (FP) PO SCH (10:10)
[2021-06-29] MEDS: hydrOXYzine PAMOATE 25 MG CAPSULE (FP) PO PRN ×3 (10:11→21:32)
[2021-06-29] MEDS: NICOTINE 10 MG CARTRIDGE (INHALER) IH PRN ×2 (10:11→21:32)
[2021-06-29] MEDS: NICOTINE 7 MG/24 HOURS TOPICAL PATCH TD SCH (10:12)
[2021-06-29] MEDS: cloNIDine HCL 0.1 MG TABLET PO PRN (10:22)
[2021-06-29] MEDS: METHOCARBAMOL 750 MG TABLET PO PRN (12:39)
[2021-06-29] MEDS: COLLOIDAL OATMEAL 1 BAR EACH TP PRN (12:39)
[2021-06-29 17:59] LABS: HIV INTERPRETATION NEGATIVE (NEGATIVE)
[2021-06-29] MEDS: THIAMINE HCL 100 MG TABLET (FP) PO SCH (21:31)
[2021-06-29] MEDS: traZODone HCL 100 MG TABLET (FP) PO SCH (21:31)
[2021-06-29] MEDS: MELATONIN 5 MG TABLETS PO SCH (21:31)
[2021-06-30] MEDS: cloNIDine HCL 0.1 MG TABLET PO PRN (10:44)
[2021-06-30] MEDS: hydrOXYzine PAMOATE 25 MG CAPSULE (FP) PO PRN (10:44)
[2021-06-30] MEDS: PRENATAL VITAMINS W/ FOLIC ACID TABLET (FP) PO SCH (10:44)
[2021-06-30] MEDS: NICOTINE 7 MG/24 HOURS TOPICAL PATCH TD SCH (10:45)
[2021-06-30] MEDS: METHOCARBAMOL 750 MG TABLET PO PRN (13:51)
[2021-06-30] MEDS: NICOTINE 10 MG CARTRIDGE (INHALER) IH PRN ×2 (13:52→21:03)
[2021-06-30] MEDS: MELATONIN 5 MG TABLETS PO SCH (21:03)
[2021-06-30] MEDS: THIAMINE HCL 100 MG TABLET (FP) PO SCH (21:03)
[2021-06-30] MEDS: traZODone HCL 100 MG TABLET (FP) PO SCH (21:03)
[2021-07-01] MEDS: hydrOXYzine PAMOATE 25 MG CAPSULE (FP) PO PRN ×2 (09:17→16:45)
[2021-07-01] MEDS: cloNIDine HCL 0.1 MG TABLET PO PRN (09:17)
[2021-07-01] MEDS: METHOCARBAMOL 750 MG TABLET PO PRN (09:17)
[2021-07-01] MEDS: PRENATAL VITAMINS W/ FOLIC ACID TABLET (FP) PO SCH (09:17)
[2021-07-01] MEDS: NICOTINE 7 MG/24 HOURS TOPICAL PATCH TD SCH (09:18)
[2021-07-01] MEDS: NICOTINE 10 MG CARTRIDGE (INHALER) IH PRN ×3 (09:58→21:18)
[2021-07-01] MEDS: THIAMINE HCL 100 MG TABLET (FP) PO SCH (21:18)
[2021-07-01] MEDS: MELATONIN 5 MG TABLETS PO SCH (21:18)
[2021-07-01] MEDS: traZODone HCL 100 MG TABLET (FP) PO SCH (21:18)
[2021-07-02] MEDS: hydrOXYzine PAMOATE 25 MG CAPSULE (FP) PO PRN ×2 (06:26→16:44)
[2021-07-02] MEDS: NICOTINE 10 MG CARTRIDGE (INHALER) IH PRN ×3 (06:26→16:44)
[2021-07-02] MEDS: cloNIDine HCL 0.1 MG TABLET PO PRN (09:46)
[2021-07-02] MEDS: METHOCARBAMOL 750 MG TABLET PO PRN (09:46)
[2021-07-02] MEDS: PRENATAL VITAMINS W/ FOLIC ACID TABLET (FP) PO SCH (09:48)
[2021-07-02] MEDS: NICOTINE 7 MG/24 HOURS TOPICAL PATCH TD SCH (10:16)
[2021-07-02] MEDS: traZODone HCL 100 MG TABLET (FP) PO SCH (21:00)
[2021-07-02] MEDS: MELATONIN 5 MG TABLETS PO SCH (21:01)
[2021-07-02] MEDS: THIAMINE HCL 100 MG TABLET (FP) PO SCH (21:01)
[2021-07-03] MEDS: NICOTINE 10 MG CARTRIDGE (INHALER) IH PRN ×5 (06:13→21:39)
[2021-07-03] MEDS: COLLOIDAL OATMEAL 1 BAR EACH TP PRN (10:13)
[2021-07-03] MEDS: PRENATAL VITAMINS W/ FOLIC ACID TABLET (FP) PO SCH (10:14)
[2021-07-03] MEDS: NICOTINE 7 MG/24 HOURS TOPICAL PATCH TD SCH (10:14)
[2021-07-03] MEDS: cloNIDine HCL 0.1 MG TABLET PO PRN (10:14)
[2021-07-03] MEDS: hydrOXYzine PAMOATE 25 MG CAPSULE (FP) PO PRN ×2 (17:02→21:21)
[2021-07-03] MEDS: THIAMINE HCL 100 MG TABLET (FP) PO SCH (21:21)
[2021-07-03] MEDS: traZODone HCL 100 MG TABLET (FP) PO SCH (21:21)
[2021-07-03] MEDS: MELATONIN 5 MG TABLETS PO SCH (21:21)
[2021-07-04] MEDS: hydrOXYzine PAMOATE 25 MG CAPSULE (FP) PO PRN ×3 (06:48→21:07)
[2021-07-04] MEDS: NICOTINE 10 MG CARTRIDGE (INHALER) IH PRN ×4 (06:48→21:08)
[2021-07-04] MEDS: PRENATAL VITAMINS W/ FOLIC ACID TABLET (FP) PO SCH (10:17)
[2021-07-04] MEDS: cloNIDine HCL 0.1 MG TABLET PO PRN (10:18)
[2021-07-04] MEDS: NICOTINE 7 MG/24 HOURS TOPICAL PATCH TD SCH (10:19)
[2021-07-04] MEDS: THIAMINE HCL 100 MG TABLET (FP) PO SCH (21:07)
[2021-07-04] MEDS: MELATONIN 5 MG TABLETS PO SCH (21:07)
[2021-07-04] MEDS: traZODone HCL 100 MG TABLET (FP) PO SCH (21:07)
[2021-07-05] MEDS: NICOTINE 10 MG CARTRIDGE (INHALER) IH PRN ×4 (07:43→21:33)
[2021-07-05] MEDS: NICOTINE 7 MG/24 HOURS TOPICAL PATCH TD SCH (10:12)
[2021-07-05] MEDS: hydrOXYzine PAMOATE 25 MG CAPSULE (FP) PO PRN (10:12)
[2021-07-05] MEDS: PRENATAL VITAMINS W/ FOLIC ACID TABLET (FP) PO SCH (10:12)
[2021-07-05] MEDS: cloNIDine HCL 0.1 MG TABLET PO PRN (10:14)
[2021-07-05] MEDS: METHOCARBAMOL 750 MG TABLET PO PRN (10:15)
[2021-07-05] MEDS: traZODone HCL 100 MG TABLET (FP) PO SCH (21:32)
[2021-07-05] MEDS: THIAMINE HCL 100 MG TABLET (FP) PO SCH (21:32)
[2021-07-05] MEDS: MELATONIN 5 MG TABLETS PO SCH (21:33)
[2021-07-06] MEDS: NICOTINE 10 MG CARTRIDGE (INHALER) IH PRN ×5 (06:08→21:12)
[2021-07-06] MEDS: hydrOXYzine PAMOATE 25 MG CAPSULE (FP) PO PRN ×4 (06:08→17:45)
[2021-07-06] MEDS: PRENATAL VITAMINS W/ FOLIC ACID TABLET (FP) PO SCH (09:28)
[2021-07-06] MEDS: METHOCARBAMOL 750 MG TABLET PO PRN (09:28)
[2021-07-06] MEDS: NICOTINE 7 MG/24 HOURS TOPICAL PATCH TD SCH (09:29)
[2021-07-06] MEDS: THIAMINE HCL 100 MG TABLET (FP) PO SCH (21:11)
[2021-07-06] MEDS: MELATONIN 5 MG TABLETS PO SCH (21:11)
[2021-07-06] MEDS: traZODone HCL 100 MG TABLET (FP) PO SCH (21:11)
[2021-07-07] MEDS: NICOTINE 10 MG CARTRIDGE (INHALER) IH PRN ×4 (06:24→21:28)
[2021-07-07] MEDS: hydrOXYzine PAMOATE 25 MG CAPSULE (FP) PO PRN ×3 (06:24→21:28)
[2021-07-07] MEDS: PRENATAL VITAMINS W/ FOLIC ACID TABLET (FP) PO SCH (10:49)
[2021-07-07] MEDS: NICOTINE 7 MG/24 HOURS TOPICAL PATCH TD SCH (10:49)
[2021-07-07] MEDS: MELATONIN 5 MG TABLETS PO SCH (21:28)
[2021-07-07] MEDS: THIAMINE HCL 100 MG TABLET (FP) PO SCH (21:28)
[2021-07-07] MEDS: traZODone HCL 100 MG TABLET (FP) PO SCH (21:28)
[2021-07-08] MEDS: hydrOXYzine PAMOATE 25 MG CAPSULE (FP) PO PRN ×3 (07:00→18:57)
[2021-07-08] MEDS: NICOTINE 10 MG CARTRIDGE (INHALER) IH PRN ×5 (07:01→22:28)
[2021-07-08] MEDS: METHOCARBAMOL 750 MG TABLET PO PRN (09:54)
[2021-07-08] MEDS: NICOTINE 7 MG/24 HOURS TOPICAL PATCH TD SCH (09:55)
[2021-07-08] MEDS: PRENATAL VITAMINS W/ FOLIC ACID TABLET (FP) PO SCH (09:55)
[2021-07-08] MEDS: cloNIDine HCL 0.1 MG TABLET PO PRN (13:54)
[2021-07-08] MEDS: MELATONIN 5 MG TABLETS PO SCH (21:37)
[2021-07-08] MEDS: traZODone HCL 100 MG TABLET (FP) PO SCH (21:37)
[2021-07-08] MEDS: THIAMINE HCL 100 MG TABLET (FP) PO SCH (21:37)
[2021-07-09] MEDS: PRENATAL VITAMINS W/ FOLIC ACID TABLET (FP) PO SCH (10:58)
[2021-07-09] MEDS: NICOTINE 7 MG/24 HOURS TOPICAL PATCH TD SCH (10:58)
[2021-07-09] MEDS: cloNIDine HCL 0.1 MG TABLET PO PRN (10:59)
[2021-07-09] MEDS: NICOTINE 10 MG CARTRIDGE (INHALER) IH PRN ×4 (11:00→23:39)
[2021-07-09] MEDS: hydrOXYzine PAMOATE 25 MG CAPSULE (FP) PO PRN ×2 (15:22→20:07)
[2021-07-09] MEDS: MELATONIN 5 MG TABLETS PO SCH (21:00)
[2021-07-09] MEDS: traZODone HCL 100 MG TABLET (FP) PO SCH (21:00)
[2021-07-09] MEDS: THIAMINE HCL 100 MG TABLET (FP) PO SCH (21:00)
[2021-07-09] MEDS: METHOCARBAMOL 750 MG TABLET PO PRN (21:17)
[2021-07-10] MEDS: hydrOXYzine PAMOATE 25 MG CAPSULE (FP) PO PRN ×2 (10:36→21:19)
[2021-07-10] MEDS: PRENATAL VITAMINS W/ FOLIC ACID TABLET (FP) PO SCH (10:36)
[2021-07-10] MEDS: METHOCARBAMOL 750 MG TABLET PO PRN (10:36)
[2021-07-10] MEDS: NICOTINE 10 MG CARTRIDGE (INHALER) IH PRN ×2 (10:37→21:20)
[2021-07-10] MEDS: NICOTINE 7 MG/24 HOURS TOPICAL PATCH TD SCH (10:37)
[2021-07-10] MEDS: cloNIDine HCL 0.1 MG TABLET PO PRN (13:24)
[2021-07-10] MEDS: THIAMINE HCL 100 MG TABLET (FP) PO SCH (21:19)
[2021-07-10] MEDS: MELATONIN 5 MG TABLETS PO SCH (21:19)
[2021-07-10] MEDS: traZODone HCL 100 MG TABLET (FP) PO SCH (21:19)
[2021-07-11] MEDS: hydrOXYzine PAMOATE 25 MG CAPSULE (FP) PO PRN ×4 (06:10→21:04)
[2021-07-11] MEDS: NICOTINE 10 MG CARTRIDGE (INHALER) IH PRN ×3 (06:10→21:06)
[2021-07-11] MEDS: cloNIDine HCL 0.1 MG TABLET PO PRN (10:55)
[2021-07-11] MEDS: PRENATAL VITAMINS W/ FOLIC ACID TABLET (FP) PO SCH (10:55)
[2021-07-11] MEDS: NICOTINE 7 MG/24 HOURS TOPICAL PATCH TD SCH (10:55)
[2021-07-11] MEDS: THIAMINE HCL 100 MG TABLET (FP) PO SCH (21:04)
[2021-07-11] MEDS: MELATONIN 5 MG TABLETS PO SCH (21:04)
[2021-07-11] MEDS: traZODone HCL 100 MG TABLET (FP) PO SCH (21:04)
[2021-07-12] MEDS: hydrOXYzine PAMOATE 25 MG CAPSULE (FP) PO PRN ×2 (06:12→10:03)
[2021-07-12] MEDS: NICOTINE 10 MG CARTRIDGE (INHALER) IH PRN ×4 (06:12→21:31)
[2021-07-12] MEDS: METHOCARBAMOL 750 MG TABLET PO PRN ×2 (10:03→21:31)
[2021-07-12] MEDS: cloNIDine HCL 0.1 MG TABLET PO PRN (10:03)
[2021-07-12] MEDS: PRENATAL VITAMINS W/ FOLIC ACID TABLET (FP) PO SCH (10:04)
[2021-07-12] MEDS: NICOTINE 7 MG/24 HOURS TOPICAL PATCH TD SCH (10:04)
[2021-07-12] MEDS: traZODone HCL 100 MG TABLET (FP) PO SCH (21:31)
[2021-07-12] MEDS: THIAMINE HCL 100 MG TABLET (FP) PO SCH (21:31)
[2021-07-12] MEDS: MELATONIN 5 MG TABLETS PO SCH (21:31)
[2021-07-13] MEDS: NICOTINE 10 MG CARTRIDGE (INHALER) IH PRN ×4 (06:28→20:08)
[2021-07-13] MEDS: METHOCARBAMOL 750 MG TABLET PO PRN ×2 (10:58→21:07)
[2021-07-13] MEDS: PRENATAL VITAMINS W/ FOLIC ACID TABLET (FP) PO SCH (10:58)
[2021-07-13] MEDS: NICOTINE 7 MG/24 HOURS TOPICAL PATCH TD SCH (10:58)
[2021-07-13] MEDS: cloNIDine HCL 0.1 MG TABLET PO PRN (10:59)
[2021-07-13] MEDS: THIAMINE HCL 100 MG TABLET (FP) PO SCH (21:07)
[2021-07-13] MEDS: traZODone HCL 100 MG TABLET (FP) PO SCH (21:07)
[2021-07-13] MEDS: MELATONIN 5 MG TABLETS PO SCH (21:07)
[2021-07-14] MEDS: IBUPROFEN 400 MG TABLET (FP) PO PRN ×2 (07:53→17:10)
[2021-07-14] MEDS: PRENATAL VITAMINS W/ FOLIC ACID TABLET (FP) PO SCH (10:19)
[2021-07-14] MEDS: NICOTINE 7 MG/24 HOURS TOPICAL PATCH TD SCH (10:19)
[2021-07-14] MEDS: cloNIDine HCL 0.1 MG TABLET PO PRN (10:19)
[2021-07-14] MEDS: METHOCARBAMOL 750 MG TABLET PO PRN ×2 (10:19→21:01)
[2021-07-14] MEDS: hydrOXYzine PAMOATE 25 MG CAPSULE (FP) PO PRN (10:19)
[2021-07-14] MEDS: NICOTINE 10 MG CARTRIDGE (INHALER) IH PRN ×3 (10:20→21:02)
[2021-07-14] MEDS: THIAMINE HCL 100 MG TABLET (FP) PO SCH (21:00)
[2021-07-14] MEDS: traZODone HCL 100 MG TABLET (FP) PO SCH (21:00)
[2021-07-14] MEDS: MELATONIN 5 MG TABLETS PO SCH (21:01)
[2021-07-15] MEDS: NICOTINE 10 MG CARTRIDGE (INHALER) IH PRN ×4 (06:17→19:53)
[2021-07-15] MEDS: METHOCARBAMOL 750 MG TABLET PO PRN ×2 (10:33→21:21)
[2021-07-15] MEDS: cloNIDine HCL 0.1 MG TABLET PO PRN (10:33)
[2021-07-15] MEDS: PRENATAL VITAMINS W/ FOLIC ACID TABLET (FP) PO SCH (10:33)
[2021-07-15] MEDS: hydrOXYzine PAMOATE 25 MG CAPSULE (FP) PO PRN ×2 (10:34→21:21)
[2021-07-15] MEDS: NICOTINE 7 MG/24 HOURS TOPICAL PATCH TD SCH (10:35)
[2021-07-15] MEDS: BENZOCAINE 28 GM HEMORRHOIDAL OINTMENT RC PRN (13:11)
[2021-07-15] MEDS: traZODone HCL 100 MG TABLET (FP) PO SCH (21:20)
[2021-07-15] MEDS: THIAMINE HCL 100 MG TABLET (FP) PO SCH (21:20)
[2021-07-15] MEDS: MELATONIN 5 MG TABLETS PO SCH (21:20)
[2021-07-16] MEDS: NICOTINE 10 MG CARTRIDGE (INHALER) IH PRN ×4 (06:42→21:03)
[2021-07-16] MEDS: BENZOCAINE 28 GM HEMORRHOIDAL OINTMENT RC PRN (06:43)
[2021-07-16] MEDS: PRENATAL VITAMINS W/ FOLIC ACID TABLET (FP) PO SCH (10:33)
[2021-07-16] MEDS: NICOTINE 7 MG/24 HOURS TOPICAL PATCH TD SCH (10:34)
[2021-07-16] MEDS: cloNIDine HCL 0.1 MG TABLET PO PRN (10:35)
[2021-07-16] MEDS: METHOCARBAMOL 750 MG TABLET PO PRN (10:35)
[2021-07-16] MEDS: hydrOXYzine PAMOATE 25 MG CAPSULE (FP) PO PRN (21:03)
[2021-07-16] MEDS: MELATONIN 5 MG TABLETS PO SCH (21:03)
[2021-07-16] MEDS: traZODone HCL 100 MG TABLET (FP) PO SCH (21:03)
[2021-07-16] MEDS: THIAMINE HCL 100 MG TABLET (FP) PO SCH (21:03)
[2021-07-17] MEDS: NICOTINE 10 MG CARTRIDGE (INHALER) IH PRN ×4 (05:42→21:53)
[2021-07-17] MEDS: PRENATAL VITAMINS W/ FOLIC ACID TABLET (FP) PO SCH (09:44)
[2021-07-17] MEDS: cloNIDine HCL 0.1 MG TABLET PO PRN (09:44)
[2021-07-17] MEDS: NICOTINE 7 MG/24 HOURS TOPICAL PATCH TD SCH (09:45)
[2021-07-17] MEDS: MELATONIN 5 MG TABLETS PO SCH (21:52)
[2021-07-17] MEDS: THIAMINE HCL 100 MG TABLET (FP) PO SCH (21:52)
[2021-07-17] MEDS: traZODone HCL 100 MG TABLET (FP) PO SCH (21:52)
[2021-07-17] MEDS: METHOCARBAMOL 750 MG TABLET PO PRN (21:55)
[2021-07-18] MEDS: NICOTINE 10 MG CARTRIDGE (INHALER) IH PRN ×4 (08:57→21:24)
[2021-07-18] MEDS: NICOTINE 7 MG/24 HOURS TOPICAL PATCH TD SCH (09:05)
[2021-07-18] MEDS: PRENATAL VITAMINS W/ FOLIC ACID TABLET (FP) PO SCH (09:05)
[2021-07-18] MEDS: MELATONIN 5 MG TABLETS PO SCH (21:01)
[2021-07-18] MEDS: THIAMINE HCL 100 MG TABLET (FP) PO SCH (21:01)
[2021-07-18] MEDS: traZODone HCL 100 MG TABLET (FP) PO SCH (21:01)
[2021-07-18] MEDS: hydrOXYzine PAMOATE 25 MG CAPSULE (FP) PO PRN (21:02)
[2021-07-19] MEDS: NICOTINE 10 MG CARTRIDGE (INHALER) IH PRN ×4 (07:26→21:40)
[2021-07-19] MEDS: PRENATAL VITAMINS W/ FOLIC ACID TABLET (FP) PO SCH (10:50)
[2021-07-19] MEDS: NICOTINE 7 MG/24 HOURS TOPICAL PATCH TD SCH (10:50)
[2021-07-19] MEDS: cloNIDine HCL 0.1 MG TABLET PO PRN (10:53)
[2021-07-19] MEDS: LIDOCAINE 5% TOPICAL PATCH TP SCH (14:55)
[2021-07-19] MEDS: THIAMINE HCL 100 MG TABLET (FP) PO SCH (21:39)
[2021-07-19] MEDS: traZODone HCL 100 MG TABLET (FP) PO SCH (21:39)
[2021-07-19] MEDS: MELATONIN 5 MG TABLETS PO SCH (21:39)
[2021-07-19] MEDS: LIDOCAINE PATCH REMOVAL MC SCH (21:39)
[2021-07-20] MEDS: PRENATAL VITAMINS W/ FOLIC ACID TABLET (FP) PO SCH (09:44)
[2021-07-20] MEDS: LIDOCAINE 5% TOPICAL PATCH TP SCH (09:44)
[2021-07-20] MEDS: METHOCARBAMOL 750 MG TABLET PO PRN (09:44)
[2021-07-20] MEDS: hydrOXYzine PAMOATE 25 MG CAPSULE (FP) PO PRN (09:44)
[2021-07-20] MEDS: cloNIDine HCL 0.1 MG TABLET PO PRN (09:44)
[2021-07-20] MEDS: NICOTINE 10 MG CARTRIDGE (INHALER) IH PRN ×3 (09:45→22:34)
[2021-07-20] MEDS: NICOTINE 7 MG/24 HOURS TOPICAL PATCH TD SCH (09:45)
[2021-07-20] MEDS: MELATONIN 5 MG TABLETS PO SCH (21:00)
[2021-07-20] MEDS: LIDOCAINE PATCH REMOVAL MC SCH (21:00)
[2021-07-20] MEDS: traZODone HCL 100 MG TABLET (FP) PO SCH (21:00)
[2021-07-20] MEDS: THIAMINE HCL 100 MG TABLET (FP) PO SCH (21:00)
[2021-07-21] MEDS: NICOTINE 10 MG CARTRIDGE (INHALER) IH PRN (06:39)
[2021-07-21 07:06] VITALS: BP 118/80; PULSE 81; TEMP 98
[2021-07-21] MEDS: PRENATAL VITAMINS W/ FOLIC ACID TABLET (FP) PO SCH (09:07)
[2021-07-21] MEDS: LIDOCAINE 5% TOPICAL PATCH TP SCH (09:07)
[2021-07-21] MEDS: cloNIDine HCL 0.1 MG TABLET PO PRN (09:07)
[2021-07-21] MEDS: NICOTINE 7 MG/24 HOURS TOPICAL PATCH TD SCH (09:07)
== END 2021-07-21 09:52 | disposition home or self-care (01) | DRG 772 ==
LOC: YASAS 13:29 → Y3W 13:41
PROVIDERS: ADMIT Allergy & Immunology; ATTEND Allergy & Immunology
PROC: HZ42ZZZ Group Counseling for Substance Abuse Treatment, Cognitive-Behavioral (ICD-10-PCS; principal; 2021-06-26)
DX: F10.20 Alcohol dependence, uncomplicated (principal); F18.10 Inhalant abuse, uncomplicated; F12.20 Cannabis dependence, uncomplicated; F17.210 Nicotine dependence, cigarettes, uncomplicated; F32.A Depression, unspecified; M25.571 Pain in right ankle and joints of right foot; M43.6 Torticollis; Z86.69 Personal history of other diseases of the nervous system and sense organs; Z86.59 Personal history of other mental and behavioral disorders; Z59.00 Homelessness unspecified; Z56.0 Unemployment, unspecified
CPT/HCPCS: 36415; 71045-TC-FY; 72040-TC; 73610-TC-RT-FY; 87389; 90686; C9803-CS; G0008; J0735; U0003; U0005

== ENCOUNTER 2022-04-14 20:03 | Inpatient (IN) | payer OTHER ==
[2022-04-14] MEDS ORDERED: MAG HYDROX/AL HYDROX/SIMETH 30 ML UNIT-DOSE CUP PO PRN (21:31)
[2022-04-14] MEDS ORDERED: BISMUTH SUBSALICYLATE 524 MG/30 ML PO PRN (21:31)
[2022-04-14] MEDS ORDERED: IBUPROFEN 600 MG TABLET (FP) PO PRN (21:31)
[2022-04-14] MEDS ORDERED: DICYCLOMINE HCL 10 MG CAPSULE PO PRN (21:31)
[2022-04-14] MEDS ORDERED: POLYETHYLENE GLYCOL (HEALTHYLAX) 3350 17 GM PACKET PO PRN (21:31)
[2022-04-14] MEDS ORDERED: P-EPHED 60MG/TRIPROLIDI 2.5MG TABLET PO PRN (21:31)
[2022-04-14] MEDS ORDERED: IBUPROFEN 400 MG TABLET (FP) PO PRN (21:31)
[2022-04-14] MEDS ORDERED: ACETAMINOPHEN 325 MG TABLET (FP) PO PRN ×2 (21:31)
[2022-04-14] MEDS ORDERED: guaiFENesin 200 MG/10 ML 10 ML UNIT-DOSE CUPS PO PRN (21:31)
[2022-04-14] MEDS ORDERED: MAGNESIUM HYDROX 2400MG/30ML ORAL SUSPENSION 30 ML CUP PO PRN (21:31)
[2022-04-14] MEDS ORDERED: BENZOCAINE/MENTHOL (CHLORASEPTIC ) LOZENGE MM PRN (21:31)
[2022-04-14] MEDS ORDERED: LOPERAMIDE HCL 2 MG CAPSULE PO PRN (21:31)
[2022-04-14] MEDS ORDERED: chlordiazePOXIDE HCL 25 MG CAPSULE PO PRN (21:37)
[2022-04-14] MEDS ORDERED: LORazepam 2 MG/ML SDV VIAL IM ONE (21:38)
[2022-04-14 21:49] VITALS: BMI 26.6
[2022-04-14] MEDS ORDERED: chlordiazePOXIDE HCL 25 MG CAPSULE ONE (22:05)
[2022-04-14] MEDS: chlordiazePOXIDE HCL 25 MG CAPSULE PO SCH (22:22)
[2022-04-15] MEDS ORDERED: chlordiazePOXIDE HCL 25 MG CAPSULE ONE (06:27)
[2022-04-15] MEDS: chlordiazePOXIDE HCL 25 MG CAPSULE PO SCH ×4 (06:29→22:03)
[2022-04-15] MEDS: THIAMINE HCL 100 MG TABLET (FP) PO SCH ×2 (08:43→22:03)
[2022-04-15] MEDS: PRENATAL VITAMINS W/ FOLIC ACID TABLET (FP) PO SCH (10:04)
[2022-04-15] MEDS: NICOTINE 10 MG CARTRIDGE (INHALER) IH PRN ×2 (12:20→22:04)
[2022-04-15 18:57] LABS: HEMATOCRIT 44.4 % (35.4-49); HEMOGLOBIN 15.1 GM/dL (11.7-16.9); MCH 34.4 pg (25.7-33.7); MEAN CELL VOLUME 101.2 fl (80-96); MEAN PLT VOLUME 9.6 fl (7.5-11.1); PLATELET COUNT 176 10^3/uL (134-434); RBC 4.39 M/mm3 (4.00-5.60); RDW 14.7 % (11.9-15.9); WHITE BLOOD COUNT 4.4 K/mm3 (4.0-10.0)
[2022-04-15 19:24] LABS: CALCIUM 9.4 mg/dL (8.5-10.1)
[2022-04-15 19:25] LABS: ALBUMIN 4.3 g/dl (3.4-5.0)
[2022-04-15 19:28] LABS: CREATININE 0.7 mg/dL (0.55-1.3)
[2022-04-15 19:30] LABS: TOT PROT 7.7 g/dl (6.4-8.2)
[2022-04-16] MEDS: chlordiazePOXIDE HCL 25 MG CAPSULE PO SCH ×4 (05:38→22:17)
[2022-04-16] MEDS: NICOTINE 10 MG CARTRIDGE (INHALER) IH PRN ×3 (05:57→22:18)
[2022-04-16] MEDS: NICOTINE POLACRILEX 2 MG GUM BUC PRN (05:57)
[2022-04-16] MEDS: ONDANSETRON *ODT* 4 MG TABLET SL PRN ×2 (10:04→18:01)
[2022-04-16] MEDS: METHOCARBAMOL 500 MG TABLET PO PRN ×2 (10:04→18:37)
[2022-04-16] MEDS: PRENATAL VITAMINS W/ FOLIC ACID TABLET (FP) PO SCH (10:05)
[2022-04-16] MEDS: THIAMINE HCL 100 MG TABLET (FP) PO SCH (22:17)
[2022-04-16] MEDS: MELATONIN 5 MG TABLETS PO PRN (22:17)
[2022-04-17] MEDS: ONDANSETRON *ODT* 4 MG TABLET SL PRN (04:00)
[2022-04-17] MEDS: METHOCARBAMOL 500 MG TABLET PO PRN ×3 (04:01→22:17)
[2022-04-17] MEDS: chlordiazePOXIDE HCL 10 MG CAPSULE PO SCH ×4 (06:02→22:17)
[2022-04-17] MEDS: chlordiazePOXIDE HCL 10 MG CAPSULE PO PRN ×2 (08:46→13:26)
[2022-04-17] MEDS: PRENATAL VITAMINS W/ FOLIC ACID TABLET (FP) PO SCH (10:17)
[2022-04-17] MEDS: NICOTINE 10 MG CARTRIDGE (INHALER) IH PRN ×4 (10:18→21:12)
[2022-04-17] MEDS: NICOTINE POLACRILEX 2 MG GUM BUC PRN ×3 (10:36→22:18)
[2022-04-17] MEDS ORDERED: CYANOCOBALAMIN (VITAMIN B-12) 1000 MCG/1 ML VIAL IM ONE (15:00)
[2022-04-17] MEDS: MELATONIN 5 MG TABLETS PO PRN (22:16)
[2022-04-17] MEDS: THIAMINE HCL 100 MG TABLET (FP) PO SCH (22:17)
[2022-04-18] MEDS: TETRAHYDROZOLINE HCL EYE DROPS OU PRN ×2 (00:15→20:01)
[2022-04-18] MEDS: chlordiazePOXIDE HCL 10 MG CAPSULE PO SCH ×2 (05:43→17:43)
[2022-04-18] MEDS: NICOTINE 10 MG CARTRIDGE (INHALER) IH PRN ×5 (05:44→22:04)
[2022-04-18] MEDS: NICOTINE POLACRILEX 2 MG GUM BUC PRN ×2 (05:50→18:02)
[2022-04-18] MEDS: PRENATAL VITAMINS W/ FOLIC ACID TABLET (FP) PO SCH (10:04)
[2022-04-18] MEDS: METHOCARBAMOL 500 MG TABLET PO PRN (10:05)
[2022-04-18] MEDS: THIAMINE HCL 100 MG TABLET (FP) PO SCH (22:03)
[2022-04-18] MEDS: MELATONIN 5 MG TABLETS PO PRN (22:04)
[2022-04-19] MEDS: NICOTINE 10 MG CARTRIDGE (INHALER) IH PRN (03:39)
[2022-04-19] MEDS ORDERED: chlordiazePOXIDE HCL 10 MG CAPSULE PO ONE (05:00)
[2022-04-19] MEDS: TETRAHYDROZOLINE HCL EYE DROPS OU PRN (05:54)
[2022-04-19] MEDS: NICOTINE POLACRILEX 2 MG GUM BUC PRN (05:55)
[2022-04-19 06:38] VITALS: RESP 18
[2022-04-19 09:06] VITALS: BP 124/76; PULSE 68; TEMP 97.3
[2022-04-19] MEDS: PRENATAL VITAMINS W/ FOLIC ACID TABLET (FP) PO SCH (10:17)
== END 2022-04-19 09:19 | disposition home or self-care (01) | DRG 775 ==
LOC: YASAS 20:03 → Y3N 04-15 06:44
PROVIDERS: ADMIT Allergy & Immunology; ATTEND Family Medicine
PROC: HZ2ZZZZ Detoxification Services for Substance Abuse Treatment (ICD-10-PCS; principal; 2022-04-15)
DX: F10.230 Alcohol dependence with withdrawal, uncomplicated (principal); F17.210 Nicotine dependence, cigarettes, uncomplicated; D53.1 Other megaloblastic anemias, not elsewhere classified; H04.123 Dry eye syndrome of bilateral lacrimal glands
CPT/HCPCS: 36415; 80053; 85027; 86780; C9803-CS; Q0162; U0003; U0005